=== PATIENT | female | born 2000 | race Caucasian/White ===

== ENCOUNTER 2023-11-05 20:04 | Outpatient (REF) | payer OTHER, SELFPAY | END 2023-11-05 20:05 | disposition home or self-care (01) | LOC: LAB 20:04 | PROVIDERS: Visit Provider Obstetrics & Gynecology | DX: Z01.419 Encounter for gynecological examination (general) (routine) without abnormal findings (principal) | CPT/HCPCS: 88175 ==

== ENCOUNTER 2024-05-19 19:46 | Outpatient (REF) | payer OTHER, SELFPAY ==
--- OUTSIDE RECORDS SUMMARY | 2024-05-19 20:07 | XMS_ITS | CCD ---
Author Organization [facility] Care Team Providers Care Flavor Extractor Name Role Phone SHAIKH ROLAND Attending Unavailable SHAIKH ROLAND Admitting Unavailable SHAIKH ROLAND Primary Care Unavailable SHAIKH ROLAND Consulting DR EZEQUIEL Dixon Admitting Unavailable DR EZEQUIEL GUNN Consulting Unavailable DR EZEQUIEL GUNN Attending Unavailable SHAIKH ROLAND Primary Care Unavailable Rocio Nur Unavailable EZEQUIEL GUNN Attending Unavailable Allergies Allergy Classification Reported Allergen(s) Allergy Type Date of Onset Reaction(s) Facility (1 source) Amoxicillin Drug Allergy 06-24-2019 [facility] Repository (2 sources) Amoxicillin Drug Allergy [facility] Relative[facility]ai Other Medications Current Medications Medication Drug Class(es) Dates Sig (Normalized) Sig (Original) 24 hr buPROPion hydrochloride 150 mg extended release oral tablet (3 sources) Aminoketone Start: 12-03-2023 take 1 tablet by mouth once daily in the morning Bupropion Hcl Active 150 MG PO Daily December 03, 2023 12:00am Free[employer]Si tablet in the morning Orally Once a day; Note: Source Status: Taking; Provider: Boom Chan ( ) take 1 tablet by sun th every twenty-four hours buPROPion HCl ER (XL) 150 MG 1 tablet in the morning Orally Once a day Active cephalexin 500 mg oral capsule (2 sources) Cephalosporin Antibacterial Start: 03-18-2023 take 1 capsule by mouth every twelve hours Cephalexin 500 MG 1 capsule Orally twice a day for Mar, Active Start: 02-15-2023 take 1 capsule by mo uth every twelve hours Cephalexin 500 MG 1 capsule Orally twice a day for Feb, Active ethinyl estradiol 0.02 mg / ferrous fumarate 75 mg / norethindrone 1 mg oral tablet (2 sources) Estrogen take 1 tablet by mouth every twenty-four hours Blisovi 24 Fe 1-20 MG-MCG(24) 1 tablet Orally Once a day Active fluticasone propionate 0.05 mg/actuat metered dose nasal spray (1 source) Corticosteroid Start: take 1 spray(s) nasal route once daily Fluticasone Propionate Active 1 SPRAY INTRANASAL Daily 16 14 December 03, 2023 12:00am administer into each nostril ibuprofen 200 mg oral tablet (2 sources) Nonsteroidal Anti-inflammatory Drug take 2-3 tablets by mouth once daily as needed Ibuprofen 200 MG 2-3 tablets Orally daily prn Active Norethindrone-E.Estra diol-Iron (Blisovi Fe /20 (28)) 1 mg-20 mcg (21)/75 mg (7) tablet (1 source) Start: Norethindrone-E.Es tradiol-Iron (Blisovi Fe 06/28 ()) 1 mg-20 mcg (21)/75 mg (7) tablet Active 1 TAB PO Daily December 03, 2023 12:00am sertraline 100 mg oral tablet (3 sources) Serotonin Reuptake Inhibitor Start: take 100 mg by mouth once daily Sertraline Active 100 MG PO Daily December 03, 2023 12:00am take 1 tablet by sun th every twenty-four hours Zoloft 100 MG 1 tablet Orally Once a day Active Problems Problem Classification Problem Date Documented Date Episodic/Chronic Acute and chronic tonsillitis (2 sources) Amygdalolith; Translations: [Other chronic diseases of tonsils and adenoids] 12-03-2023 Chronic Anxiety disorders (1 source) Mixed anxiety and depressive disorder; Translations: [Anxiety disorder, unspecified] 12-03-2023 Chronic Cardiac dysrhythmias (1 source) Pulse fast; Translations: [Tachycardia, unspecified] 12-03-2023 Episodic Disorders of lipid metabolism (1 source) Hyperlipidemia; Translations: [Hyperlipidemia, unspecified] 12-03-2023 Chronic Immunizations and screening for infectious disease (1 source) Encounter for screening for human papillomavirus (HPV); Translations: [ENC SCREENING HUMAN PAPILLOMAVIRUS] Onset: 10-17-2021 Episodic Other nutritional; endocrine; and metabolic disorders (4 sources) Abnormal weight gain; Translations: [ABNORMAL WEIGHT GAIN] Onset: 08-13-2021 Episodic Other screening for suspected conditions (not mental disorders or infectious disease) (4 sources) Encounter for screening for malignant neoplasm of cervix; Translations: [ENC SCREENING MALIG NEOPLASM CERV] Onset: 10-16-2021 Episodic Other upper respiratory disease (1 source) Congestion of nasal sinus; Translations: [Nasal congestion] 12-03-2023 Episodic Other upper respiratory disease (1 source) Nasal congestion; Translations: [Other disease of nasal cavity and sinuses] 12-03-2023 Episodic Other upper respiratory infections (2 sources) Maxillary sinusitis; Translations: [Chronic maxillary sinusitis] Chronic Other upper respiratory infections (4 sources) Acute pharyngitis, unspecified; Translations: [Streptococcal pharyngitis] Episodic Thyroid disorders (1 source) Hypothyroidism; Translations: [Hypothyroidism, unspecified] 12-03-2023 Chronic Results Test Name Value Interpretation Reference Range Facil ity Quick Strepon 03-18-2023 S. pyogenes Org specific cx Ql (Throat) Positive [facility] Other Quick Strep [facility] Other Quick Strepon 02-15-2023 S. pyogenes Org specific cx Ql (Throat) Positive [facility] Other Quick Strep [facility] Other PAP ACOG PANEL 2: 21 to 29on 10-22-2021 . . Normal [facility] Comment on above: Performed By: #### [id number] #### [facility] [address] [address] [address] Mikhail Gaines Age Gdln ACOG Testing 19- Normal [facility] Comment on above: Performed By: #### [id number] #### [facility] [id number] Mikhail Gaines DIAGNOSIS: Comment [facility] Comment on above: Result Comment: NEGATIVE FOR INTRAEPITHE LIAL LESION OR MALIGNANCY. Performed By: #### [id number] #### [facility] [address] [place] [address] Dr. Mikhail Gaines Methodology: Comment Normal [facility] Comment on above: Result Comment: This liquid based ThinPr ep(R) pap test was screened with the use of an image guided system. Performed By: #### [id number] #### [facility] [address] [place] [address] Dr. Mikhail Gaines Note: Comment Normal [facility] Comment on above: Result Comment: The Pap smear is a scree darcie test designed to aid in the detection of premalignant and malignant conditions of the uterine cervix. It is not a diagnostic procedure and should not be used as the sole means of detecting cervical cancer. Both false-positive and false-negative reports do occur. . Performed By: #### [id number] #### [facility] [address] [place] [address] Dr. Mikhail Gaines Performed by: Comment Normal [facility] Comment on above: Result Comment: January Keys Cytotechn ologist (ASCP) Performed By: #### [id number] #### [facility] [address] [place] [address] Dr. Mikhail Gaines Reflex Criteria: Comment [facility] Comment on above: Result Comment: The HPV DNA reflex crite marilou were not met with this specimen result therefore, no HPV testing was performed. . Performed By: #### [id number] #### [facility] [address] [place] [address] Dr. Mikhail Gaines Specimen adequacy: Comment Normal [facility] Comment on above: Result Comment: Satisfactory for evaluat ion. No endocervical component is identified. Performed By: #### [id number] #### [facility] [address] [place] [address] Dr. Mikhail Gaines TSHon 08-13-2021 TSH 1.745 uIU/mL Normal 0.470-4.680 [facility] Comment on above: Performed By: #### TSH #### [facility] [address] [place] [address] Dr. Mikhail Gaines TSH RANGE SEE BELOW Normal [facility] Comment on above: Result Comment: <0.34 UIU/ml HYPERTHYROI D 0.34-5.60 UIU/ml EUTHYROID >5.60 UIU/ml HYPOTHYROID Performed By: #### T #### [facility] [address] [place] [address] Dr. Mikhail Gaines Vital Signs Date Time Vital Sign Value Performing Clinician Facility 12-03-2023 10:49-0400 Body height 172.72 cm [facility] 12-03-2023 10:49-0400 Body mass index (BMI) [Ratio] 38 kg/m2 [facility] 12-03-2023 10:49-0400 Body temperature 98.3 [degF] [facility] 12-03-2023 10:49-0400 Body weight 113.39 kg [facility] 12-03-2023 10:49-0400 Diastolic blood pressure 73 mm[Hg] [facility] 12-03-2023 10:49-0400 Heart rate 102 /min [facility] 12-03-2023 10:49-0400 Respiratory rate 18 /min [facility] 12-03-2023 10:49-0400 SaO2% (BldA) [Mass fraction] 97 % [facility] 12-03-2023 10:49-0400 Systolic blood pressure 127 mm[Hg] [facility] 03-18-2023 13:15-0400 Body height 170.18 cm Rocio Nur Other [facility] Other 03-18-2023 13:15-0400 Body mass index (BMI) [Ratio] 39.68 kg/m2 Rocio Nur Other [facility] Other 03-18-2023 13:15-0400 Body temperature 99.7 [degF] Rocio Nur Other [facility] Other 03-18-2023 13:15-0400 Body weight 114.94 kg Rocio Nur Other [facility] Other 03-18-2023 13:15-0400 Respiratory rate 18 /min Rocio Nur Other [facility] Other 03-18-2023 13:15-0400 SaO2% (BldA) [Mass fraction] 97 % Rocio Nur Other [facility] Other 02-15-2023 11:20-0400 Body height 170.18 cm Rocio Nur Other [facility] Other 02-15-2023 11:20-0400 Body mass index (BMI) [Ratio] 39.97 kg/m2 Rocio Nur Other [facility] Other 02-15-2023 11:20-0400 Body temperature 98.1 [degF] Rocio Nur Other [facility] Other 02-15-2023 11:20-0400 Body weight 115.76 kg Rocio Nur Other [facility] Other 02-15-2023 11:20-0400 Respiratory rate 16 /min Rocio Nur Other [facility] Other 02-15-2023 11:20-0400 SaO2% (BldA) [Mass fraction] 99 % Rocio Nur Other [facility] Other Encounters Encounter Date Encounter Type Care Provider Facility Start: 12-03-2023 End: 12-03-2023 ambulatory [facility] Work Phone: Start: 12-03-2023 End: 12-03-2023 Patient encounter procedure [facility] Work Phone: Start: 11-05-2023 End: 11-05-2023 ambulatory EZEQUIEL GUNN Not Available Start: 03-18-2023 End: 03-18-2023 ambulatory Rocio Nur Other [facility] Other Start: 03-18-2023 Office outpatient vi sit 25 minutes Rocio Nur [facility] Start: 02-15-2023 End: 02-15-2023 ambulatory Rocio Nur Other [facility] Other Start: 02-15-2023 Office outpatient ne w 30 minutes Rocio Nur [facility] Start: 10-16-2021 End: 10-16-[address] EZEQUIEL GUNN Facility:[facility] Start: 08-13-2021 End: 08-14-2021 ambulatory SHAIKH ASUNCION Facility:[facility] Payers Date Payer Category Payer Unknown [id number] 1998 Unknown [id number] 1998 Unknown [id number] [id number] 1998 Unknown [id number] 1959 Unknown [id number] Social History Date Type Detail Facility Unknown if ever smoked [facility] Other Sex Assigned At Sex Assigned At Bir th [facility] Other Start: 12-03-2023 Tobacco smoking status NHIS Never smoked tobacco (finding) [facility] Start: 2000 Sex Assigned At Female F [facility] Evaluation note 03-18-2023 Note Date & Type Note Facility 03-18-2023 Evaluation note Encounter Date Diagnosis Assessment Notes Mar, Sore throat (ICD-10 - J02.9) Mar, Strep pharyngitis (ICD-10 - J02.0) Advised patient that strep test was positive. Reviewed allergies and recent antibiotic use. Instructed patient to take antibiotic as prescribed, with food and plenty of water, complete entire course even if feeling better. Advised patient that they are contagious for 24 hours after starting antibiotic. Discussed infection control and good hand hygiene. New tooth brush in 2-3 days after starting antibiotic. Supportive care as directed. Push fluids and rest, Tylenol or Motrin as needed for fever or discomfort, warm salt water gargles, throat lozenges as needed. Patients symptoms should improve in the next 48 hours, eval by PCP or UC if symptoms have not improved with treatment. Discussed in depth warning symptoms that require immediate eval. Patient verbalizes understanding and is agreeable to treatment plan. [facility] Other Evaluation note 02-15-2023 Note Date & Type Note Facility 02-15-2023 Evaluation note Encounter Date Diagnosis Assessment Notes Feb, Sore throat (ICD-10 - J02.9) Feb, Strep pharyngitis (ICD-10 - J02.0) Advised patient that strep test was positive. Instructed to take antibiotic as directed, complete entire course even if feeling better. Allergies and recent antibiotics reviewed. Advised that patient is contagious for 24 hours after starting antibiotic, work/school note provided. Discussed good hand hygiene and infection control. New tooth brush and wash linens after 2-3 days of being on antibiotic to prevent reinfection. Discussed supportive care, push fluids and rest, eat soft foods and liquids that are easy to swallow, use throat lozenges and warm salt water gargles, Tylenol/Motrin as needed for fever or discomfort. Symptoms should improve in the next 48 hours, eval by PCP or UC if symptoms have not improved with treatment. Immediate eval if difficultly managing oral secretions, drooling, unilateral neck swelling, hot potato voice, persistent fever, neck pain/stiffness, severe headache, lethargy or any new or concerning symptoms arise. Patient verbalizes understanding and is agreeable to treatment plan [facility] Other Evaluation note Note Date & Type Note Facility Evaluation note Diagnosis Onset Date Sinus congestion acute Tonsil stone [facility] Work Phone: History general Narrative - Reported Note Date & Type Note Facility History general Narrative - Reported Type Medical History Elevated pulse rate Medical History HYperlipidemia Medical History Anxiety and Depression Medical History Hypothyroidism [facility] Other Summary Purpose Family History Relationship Condition Age at Onset Recorded Date/T [place] father Hyperlipidemia Unknown Family history of mental disorder Unknown Hypertension Unknown mother Family history of mental disorder Unknown Advance Directives Advance Directive Response Recorded Date/ Time Advance Directives No December 02 10:36am Chief Complaint and Reason for Visit Chief Complaint cough,congestion, co vid neg test Reason for Visit Sinus congestion Tonsil stone Additional Source Comments INFORMATION SOURCE (unrecogn ized section and content) DATE CREATED AUTHOR 10/25/2021 [facility] DATE CREATED AUTHOR AUTHOR'S ORGANIZ ATION 11/06/2023 [facility] EPIC REASON FOR VISIT (unrecogniz ed section and content) possible strepSORE THROAT, C ONGESTION, EARS Care Teams (unrecognized sec tion and content) Team Status: Active Member Role Status Dates PHYSICIAN NO FAMILY Primary Care Provider Active Team Status: Inactive Member Role Status Dates Diane Lawrence APRN Attending Provider Active S tart: December 03, 2023 End: December 03, 2023 PHYSICIAN NO FAMILY Primary Care Provider Active Start: December 03, 2023 End: December 03, 2023 Goals (unrecognized section and content) Goals may be documented in a n alternate section FOR RECORDS PERTAINING TO PATIENTS WHO ARE OR HAVE BEEN ENROLLED IN A CHEMICAL DEPENDENCY/SUBSTANCEABUSE PROGRAM, SOME INFORMATION MAY BE OMITTED. This clinical summary was aggregated from multiple sources. Caution should be exercised in using it in the provision of clinical care. This summary normalizes information from multiple sources, and as a consequence, information in this document may materially change the coding, format and clinical context of patient data. In addition, data may be omitted in some cases. CLINICAL DECISIONS SHOULD BE BASED ON THE PRIMARY CLINICAL RECORDS. [employer] provides no warranty or guarantee of the accuracy or completeness of information in this document.
== END 2024-05-19 19:47 | disposition home or self-care (01) ==
LOC: LAB 19:46
PROVIDERS: Visit Provider Obstetrics & Gynecology
DX: R87.612 Low grade squamous intraepithelial lesion on cytologic smear of cervix (LGSIL) (principal); Z12.4 Encounter for screening for malignant neoplasm of cervix
CPT/HCPCS: 88175

== ENCOUNTER 2025-05-25 20:39 | Outpatient (REF) | payer OTHER, SELFPAY ==
--- OUTSIDE RECORDS SUMMARY | 2025-05-25 15:00 | XMS_ITS | Encounter Summary ---
Author Organization [facility] Address [address] [place] [address] Care Team Providers Care Blower And Compressor Assembler Name Role Phone Shaikh MARYBETH Jiménez Primary Care Provider [phone] Reason for Visit * ReasonCommentsWell Women Visit Encounter Details DateTypeDepartmentCare Team (Latest Contact Info)Enqglwffuep64/17/2025 3:00 PM ESTOffice Visit [facility] [address] [place] [id number] Sonny Bello DO [address] [place] [address] Well woman exam with routine gynecological exam Social History Tobacco UseTypesPacks/DayYears UsedDateSmoking Tobacco: Never Assessed CommentsUnknownSex and Gender InformationValueDate RecordedSex Assigned at Vukepx0610/29/2023 12:45 PM EDTLegal RogKmhpyr64/15/2023 7:26 PM EDTGender TtlixlxyAkyfgd28/22/2024 12:45 PM EDTSexual AugyazzgkmaNozdzhmh55/22/2024 12:45 PM EDTdocumented as of this encounter Last Filed Vital Signs Vital SignReadingTime TakenCommentsBlood Qajshutj414/7005/25/2025 3:25 PM EST Pulse--Temperature--Respiratory Rate--Oxygen Saturation--Inhaled Oxygen Concentration--Pczweh608 kg (253 lb 12.8 oz)05/25/2025 3:25 PM ESTHeight--Body Mass Index38.59010/22/2022 12:00 PM EDTdocumented in this encounter Progress Notes * Dorina Davidson, VACUUM CLEANER OPERATOR - 05/25/2025 3:00 PM EST Reason for Appointment: Patient ID: Cindy Carcamo is a 24 y.o. female who presents for Well Women Visit Patient presents today for Annual Exam. MEDICATIONS Current Outpatient Medications Medication Instructions buPROPion XL (WELLBUTRIN XL) 150 mg, Oral, Daily norethindrone-ethinyl estradiol (Blisovi FE 06/28) 1-20 MG-MCG tablet 1 tablet, Oral, Daily sertraline (ZOLOFT) 100 mg, Oral, Daily ALLERGIES Allergies Allergen Reactions Amoxicillin Hives and Unknown Other Reaction(s): rash Other Reaction(s): hives PROBLEMS Active Ambulatory Problems Diagnosis Date Noted No Active Ambulatory Problems Resolved Ambulatory Problems Diagnosis Date Noted No Resolved Ambulatory Problems No Additional Past Medical History HISTORY PAST MEDICAL HISTORY SOCIAL HISTORY No past medical history on file. Social History Tobacco Use Smoking status: Not on file Smokeless tobacco: Not on file Substance Use Topics Alcohol use: Not on file Drug use: Not on file FAMILY HISTORY No family history on file. SURGICAL HISTORY No past surgical history on file. REVIEW OF SYSTEMS Review of Systems: Review of Systems Constitutional: Negative. HENT: Negative. Eyes: Negative. Respiratory: Negative. Cardiovascular: Negative. Gastrointestinal: Negative. Genitourinary: Negative. Musculoskeletal: Negative. Skin: Negative. Neurological: Negative. All other systems reviewed and are negative. Hematological: Negative. Endocrine: Negative. Allergic/Immunologic: Negative. OBJECTIVE Objective: Physical Exam Constitutional: Appearance: Normal appearance. She is well-developed. Genitourinary: Vulva normal. Cardiovascular: Rate and Rhythm: Normal rate and regular rhythm. Pulmonary: Effort: Pulmonary effort is normal. Breath sounds: Normal breath sounds. Abdominal: General: Bowel sounds are normal. There is no distension. Palpations: Abdomen is soft. Tenderness: There is no abdominal tenderness. There is no guarding or rebound. Musculoskeletal: General: No swelling. Normal range of motion. Right lower leg: No edema. Left lower leg: No edema. Neurological: Mental Status: She is alert and oriented to person, place, and time. Skin: General: Skin is warm and dry. Psychiatric: Mood and Affect: Mood normal. Behavior: Behavior normal. Vitals and nursing note reviewed. Exam conducted with a environmental protection economist present. Vitals: Estimated body mass index is 38.59 kg/m?? as calculated from the following: Height as of 10/22/22: 5' 8 . Weight as of this encounter: 253 lb 12.8 oz. BP: 116/70 No LMP recorded. ASSESSMENT & PLAN ICD-10-CM 1. Well woman exam with routine gynecological exam Z01.419 Pap Smear No orders of the defined types were placed in this encounter. Annual Wellness Exam: Patient presents today for routine annual exam. Patient states she has no current complaints. Patients vitals were reviewed and within normal limits. Growth and development is noted to be appropriate for age. Menstrual history is noted to be regular with no concerns reported. No mental health concerns was expressed. Pap Smear: Speculum was inserted into the vagina and pap was obtained without difficulty. No HPV testing was performed per age guideline. Patient was advised that pap results could take anywhere from 7 to 10 days to receive and our office will reach out to the patient with those once we have them. Patient canalso view results via [place]. I reinforced importance of condom use for STI prevention. Patient declined cultures to be performed with today's visit. Breast Exam: Upon examination, clinical breast exam was noted to be normal. Patient was counseled on breast self-awareness, including the importance of knowing what is normal for her own breasts and promptly reporting any changes such as new lumps, skin dimpling, nipple discharge, or pain. Screening mammogram recommended annually beginning at age 40 or earlier if risk factors are present. Discussed signs and symptoms of breast cancer and when to seek medical attention. Answered all patient questions. Contraceptive Counseling (if applicable): Patient is currently using oral contraception as a form of contraceptive. Follow Up: Patient is to return to our office in one year for annual exam unless needed otherwise. Documented by Dorina Davidson LPN on behalf of: Sonny Bello DO documented in this encounter Plan of Treatment DateTypeDepartmentCare Team (Latest Contact Info)Lkacadtovgz29/06/2027 3:00 PM ESTProcedure Visit [facility] [address] [place] [address] [place] [address] Sonny Bello, DO [address] [place] [address] NameTypePriorityAssociated DiagnosesOrder SchedulePap SmearPathology and CytologyRoutine Well woman exam with routine gynecological exam Ordered: 05/25/2025documented as of this encounter Goals GoalPatient Goal TypeAssociated ProblemsRecent ProgressPatient-Stated?Author Help patient manage antidepressant medication Care PlanPatient on antidepressant monitoring planChay, Lou Baseline PHQ-9 Care PlanBaseline PHQ-9NoNromel, Angeladocumented as of this encounter Visit Diagnoses Diagnosis Well woman exam with routine gynecological exam Routine gynecological examination documented in this encounter Additional Health Concerns Active ProblemsNoted DateDiagnosed DatePatient on antidepressant monitoring plan 5Baseline PHQ-9011/17/2024documented as of this encounter Care Teams Team MemberRelationshipSpecialtyStart DateEnd Date Shaikh Jiménez MD [address] [place] [address] PCP - GeneralInternal Medicine11/05/23documented as of this encounter
--- OUTSIDE RECORDS SUMMARY | 2025-05-25 20:47 | XMS_ITS | Clinical Summary ---
Author Organization [facility] Address [address] [place] [address] Care Team Providers Care Software Configuration Specialist Name Role Phone Shaikh MARYBETH Jiménez Primary Care Provider [phone] Allergies Active AllergyReactionsCriticalityNoted DateCommentsAmoxicillinHives,Unknown 10/30/2023 Other Reaction(s): rash Other Reaction(s): hives Medications MedicationSigDispense QuantityRefillsLast FilledStart DateEnd DateStatus buPROPion XL (Wellbutrin XL) 150 MG 24 hr tablet Take 150 mg by mouth DailyActive sertraline (Zoloft) 100 MG tablet Indications:Depression with anxietyTake 1 tablet (100 mg) by mouth Daily 90 tablet 4Active norethindrone-ethinyl estradiol (Blisovi FE 06/28) 1-20 MG-MCG tablet Indications:Encounter for surveillance of contraceptive pillsTake 1 tablet by mouth Daily 28 tablet 1205Active Encounters DateTypeDepartmentCare BkraDsmrfcuoqup13/17/2025 3:00 PM ESTOffice Visit [facility] [address] [place] [address] Sonny Bello DO Well woman exam with routine gynecological exam05/25/2025amboo flowsheet [facility] [address] [place] [address] Sonny Bello DO from Last 3 Months Social History Tobacco UseTypesPacks/DayYears UsedDateSmoking Tobacco: Never Assessed CommentsUnknownSex and Gender InformationValueDate RecordedSex Assigned at Dgkmaf4710/29/2023 12:45 PM EDTLegal NrdKcdnxk44/15/2023 7:26 PM EDTGender EaiwuiseTxtoho62/22/2024 12:45 PM EDTSexual SfvylhyqcyyEzjkfklu23/22/2024 12:45 PM EDT Last Filed Vital Signs Vital SignReadingTime TakenCommentsBlood Npzbzpwd299/7005/25/2025 3:25 PM EST Pulse--Temperature--Respiratory Rate--Oxygen Saturation--Inhaled Oxygen Concentration--Igybnu819 kg (253 lb 12.8 oz)05/25/2025 3:25 PM UYWZdgymk042.7 cm (5' 8 )10/22/2022 12:00 PM EDTBody Mass Index38.59010/22/2022 12:00 PM EDT Plan of Treatment DateTypeDepartmentCare Team (Latest Contact Info)Tyhfhzoajny09/06/2027 3:00 PM ESTProcedure Visit [facility] [address] [place] [phone] Sonny Bello DO [address] [facility] [place], [place] [id number] Health MaintenanceDue DateLast DoneCommentsCOVID-19 Vaccine ( season) , 02/16/2021, 09/07/2020Influenza Vaccine (#1)2025 Pneumococcal Vaccine: Pediatrics (0 to 5 Years) and At-Risk Patients (6 to 64 Years)Aged OutNo longer eligible based on patient's age to complete this topic Goals GoalPatient Goal TypeAssociated ProblemsRecent ProgressPatient-Stated?Author Help patient manage antidepressant medication Care PlanPatient on antidepressant monitoring Lou Gomez Baseline PHQ-9 Care PlanBaseline PHQ-9Lou Cartwright Additional Health Concerns Active ProblemsNoted DateDiagnosed DatePatient on antidepressant monitoring plan 11/17/2024aseline PHQ-9011/17/2024 Insurance Care Teams Team MemberRelationshipSpecialtyStart DateEnd Date Shaikh Jiménez MD [address] [place] [phone] PCP - GeneralInternal Medicine11/05/23
--- OUTSIDE RECORDS SUMMARY | 2025-05-25 20:47 | XMS_ITS | Encounter Summary ---
Author Organization [facility] Address [address] [facility] [place] [address] Care Team Providers Care Pelt Grader Name Role Phone Shaikh MARYBETH Jiménez Primary Care Provider [phone] Encounter Details DateTypeDepartmentCare Team (Latest Contact Info)Uuhycrykasq88/17/2025amboo flowsheet [facility] [address] [place] [address] [place] [address] Sonny Bello, DO [address] [facility] [address] [place], [place] [address] Social History Tobacco UseTypesPacks/DayYears UsedDateSmoking Tobacco: Never Assessed CommentsUnknownSex and Gender InformationValueDate RecordedSex Assigned at Ptoeak4510/29/2023 12:45 PM EDTLegal IcmRrphoy08/15/2023 7:26 PM EDTGender YfizzjljYetuoy09/22/2024 12:45 PM EDTSexual SlpthrpofwxCzrlloqm56/22/2024 12:45 PM EDTdocumented as of this encounter Plan of Treatment DateTypeDepartmentCare Team (Latest Contact Info)Bvlabmcpsnl78/06/2027 3:00 PM ESTProcedure Visit [facility] [address] [place] [address] Sonny Bello, DO [address] [place], [facility] documented as of this encounter Goals GoalPatient Goal TypeAssociated ProblemsRecent ProgressPatient-Stated?Author Help patient manage antidepressant medication Care PlanPatient on antidepressant monitoring planLou Cartwright Baseline PHQ-9 Care PlanBaseline PHQ-9Sanju Cartwrightadocumented as of this encounter Visit Diagnoses Not on filedocumented in this encounter Additional Health Concerns Active ProblemsNoted DateDiagnosed DatePatient on antidepressant monitoring plan 5Baseline PHQ-9011/17/2024documented as of this encounter Care Teams Team MemberRelationshipSpecialtyStart DateEnd Date Shaikh Jiménez MD [address] [place] [address] PCP - GeneralInternal Medicine11/05/23documented as of this encounter
--- OUTSIDE RECORDS SUMMARY | 2025-05-25 20:47 | XMS_ITS | Patient Health Record ---
Author Organization [facility] Address [address] [place], [place] [id number] Care Team Providers Care Senior Telecommunications Technician Name Role Phone Jacklyn Lee Primary Care Provider Allergies Allergen (clinical drug ingredient) Drug/Non Drug Allergy documented on EMR Reaction Allergy Type Onset Date Status amoxicillin Amoxicillin hives Drug Allergy Active Results Component Value Reference Range Flag Notes LIPID PANEL WITH REFLEX TO D IRECT LDL Reviewed date:01/06/2025 08:15:11 AM Interpretation: Performing Lab: Notes/Report: CHOLESTEROL 247 100-199 mg/dL H QHBUXYPXFDMED32637-475 mg/dLHVLDL-CHOL, XQBDEDTHKT28<30 mg/dLHHDL-CHOL54>=50 mg/dLLDL-CHOL, XFEETHBJEK258<130 mg/dLH ADULT LDL CHOLESTEROL CLASSIFICATION <100mg/dL Optimal 100-129mg/dL Near/Above Optimal 130-159mg/dL Borderline High >160mg/dL High Risk Desirable range <100 mg/dL for patients with CHD or diabetes and <70 mg/dL for diabetic patients with known heart disease. Direct LDL is recommended for patients with triglycerides >400. LDL/HDL2.9<4.1 LDL/HDL RATIO MALE FEMALE below average risk <2.3 <2.3 average risk <5.0 <4.1 moderate risk <7.1 <5.6 high risk >7.1 >5.6 CHOL/HDL4.62.0-4.5HTSH + FREE T4 PROFILE Reviewed date:01/06/2025 08:01:20 AM Interpretation: Performing Lab: Notes/Report:TSH2.050.270-4.200 uIU/mL The [place] [employer] (MICKI) recommends the following reference ranges for TSH levels during : First trimester: 0.1 to 2.5 mIU/L Second trimester: 0.2 to 3.0 mIU/L Third trimester: 0.3 to 3.0 mIU/L FREE T41.040.80-1.90 ng/dLCOMPREHENSIVE METABOLIC PANEL WITH GFR Reviewed date:01/06/2025 08:02:21 AM Interpretation: Performing Lab: Notes/Report:ZBYSRLP1724-651 mg/nAQVA777-18 mg/dLCALCIUM9.28.6-10.5 mg/dL CREATININE, BLOOD0.790.51-1.15 mg/dLeGFR (2020 CKD-EPI)106>59 mL/min/1.73m2 XRIXWD792286-199 mmol/LPOTASSIUM4.33.5-5.4 mmol/GIOKVBLCO71762-821 mmol/JKE576 18-32 mmol/LANION NYI543-91 mmol/LT. BILIRUBIN0.3<1.3 mg/dLALK SVYT0673-200 U/L HKG-BSCW454-49 U/FZRN-GISK006-69 U/LT. PROTEIN6.86.0-8.3 g/dLALBUMIN4.03.5-5.2 g/dLCBC W/AUTO DIFF Reviewed date:01/06/2025 08:01:13 AM Interpretation: Performing Lab: Notes/Report:WBC8.73.6-11.0 THDS/CMMRBC5.183.80-5.20 MILL/ILXCJK26.111.9-16.0 G/DLHCT44.035-47 %MWT8962-839 fLMCH27.226.0-33.0 rcBXCN25.032.0-35.0 g/dlRDW12.4 11.2-14.8 %NLBBCAJQ058176-136 THOUS/TZKCUOKDDNIJPC34.745-75 %WGTKDAQVLIH64.020- 45 %MONOCYTES7.70-13 %EOSINOPHILS1.70-5 %BASOPHILS0.60-2 %IMMATURE GRAN1.30-2 % ABS NEUTROPHILS4.961.9-8.0 K/uLABS LYMPHOCYTES2.800.9-5.2 K/uLABS MONOCYTES0.67 0.1-1.0 K/uLABS EOSINOPHILS0.150.0-0.80 K/uLABS BASOPHILS0.050.0-0.2 K/uLABS IMMATURE GRAN0.110.00-0.06 K/uLHHEMOGLOBIN A1C Reviewed date:01/06/2025 08:02:10 AM Interpretation: Performing Lab: Notes/Report:HEMOGLOBIN A1C5.1<5.7 % Prediabetes: 5.7% to 6.4% Diabetes: >6.4% Glycemic control for adults with diabetes: <7.0% Use with caution in patients with abnormal hemoglobin variants as the half-life of red blood cells and in vivo glycation rates are affected. AVERAGE WHOLE BLOOD JALFRBX387<126 mg/dl UNLESS OTHERWISE INDICATED, ALL TESTING PERFORMED AT: [facility] [address] [place] [address] FUR CLEANER: LAVERN HERNANDEZ M.D. CLIA NUMBER [id number] CAP ACCREDITATION AUID [id number] UDS PAP Screening Reviewed date:01/04/2025 03:01:13 PM Interpretation: Performing Lab: Notes/Report: UDS HPV Screening Reviewed date:01/04/2025 03:02:23 PM Interpretation: Performing Lab: Notes/Report: Reason For Referral No Information Medications Medication SIG (Take, Route, Frequency, Duration) Notes Start Date End Date Status Sertraline HCl 100 MG Tablet 1 tablet Orally Onc e a day; Duration: 90 days ActiveNorethindrone Acet-Ethinyl Est 1-20 MG-MCG Tablet1 tablet Orally Once a dayActive Social History Tobacco Use: Social History Observation Description Date Details (start date - stop date) Never Smoker NA - NA Sex Assigned At : Social History Observation Description Sex Assigned At Female Social History Social DeterminantsSocial InfoQuestionAnswerNotesPRAPAREDate Completed/Updated: 01/04/2025patient entered dataWhat is your current housing situation?I have housingpatient entered dataAre you worried about losing your housing?No patient entered dataWhat is the highest level of school that you have finished?More than high schoolpatient entered dataWhat 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 (For example: talkingto friends on the phone, visiting friends or family, going to shinto or club meetings)More than 5 times a weekpatient entered dataHow stressed are you? Stress is when someone feels tense, nervous, anxious, or can't sleep at night because their mind is troubledNot at allpatient entered dataIn the past year have you spent more than 2 nights in a row in a chcf, custodial, longterm center, orjuvenile correctional facility?Nopatient entered dataAre you a refugee?No patient entered dataWhat country are you from?[place] Statespatient entered dataDo you feel physically and emotionally safe where you currently live?Yes patient entered dataIn the past year, have you been afraid of your partner or ex-partner?Nopatient entered dataPRAPARE Score:3Sexual History:Social Info QuestionAnswerNotesFamily PlanningAre you or your partner planning on becoming in the next year if not already ?No? What type of contraception are you using? controlPCMH and UDS DemographicsSocial InfoQuestionAnswer NotesPrimary Care Medical Home QuestionsDo you have any barriers to learning? Nonepatient entered dataDrugs/Alcohol/Caffeine:Social InfoQuestionAnswerNotes CAGE-AID Questionnaire (2018 Edition)Have you ever felt that you ought to cut down on your drinking or drug use?Nopatient entered dataHave people annoyed you by criticizing your drinking or drug use?NoHave you ever felt bad or guilty about your drinking or drug use?Nopatient entered dataHave you ever had a drink or used drugs first thing in the morning to steady your nerves or to get r id of a hangover?Nopatient entered dataCAGE-AID Movjx6EnxgandbwzlzusXlzpkpti Tobacco Use:Social InfoQuestionAnswerNotesTobacco Use/SmokingTobacco use: nonsmokerpatient entered data Problems Problem Type SNOMED Code ICD Code Onset Dates Problem Status W/U Status Risk Notes Problem Mixed hyperlipidemia (393461200) Mixed hy perlipidemia (E78.2) ActiveconfirmedProblemObese class II (973947935351127)BMI 38.0-38.9,adult (Z68.38)ActiveconfirmedProblemDiabetes mellitus screening (244736089)Diabetes mellitus screening (Z13.1)ActiveconfirmedProblemMixed anxiety and depressive disorder (175014028)Mixed anxiety and depressive disorder (F41.8)Activeconfirmed ProblemGeneralized anxiety disorder (44826725)Anxiety, generalized (F41.1)Active confirmedProblemLipid screening (496998498)Lipid screening (Z13.220)Active confirmedProblemHuman immunodeficiency virus screening (193442075)Screening for HIV (human immunodeficiency virus) (Z11.4)Activeconfirmed Vital Signs Heart Rate 83 /min 01/04/2025 Vilma Mart 01/04/2025 02:40:24 PM EDT > Temperature 97.87 degrees Fahrenheit 01/04/2025 Vilma Machuca 01/04/2025 02:40:24 PM EDT > Respiratory Rate 16 /min 01/04/2025 Tawnya Mart 01/04/2025 02:40:24 PM EDT > Height-cm 172.72 cm 01/04/2025 Vilma Mart 01/04/2025 02:40:24 PM EDT > Oximetry 98 % 01/04/2025 Vilma Mart 01/04/2025 02:40:24 PM EDT > Blood pressure diastolic 67 mm Hg 01/04/2025 Vilma Machuca 01/04/2025 02:40:24 PM EDT > Weight-kg 113.85 kg 01/04/2025 Vilma Mart 01/04/2025 02:40:24 PM EDT > Height 68 in 01/04/2025 Vilma Mart 01/04/2025 02:40:24 PM EDT > Blood pressure systolic 119 mm Hg 01/04/2025 Vilma Mcconnell 01/04/2025 02:40:24 PM EDT > Weight 251.0 lbs 01/04/2025 Vilma Mart 01/04/2025 02:40:24 PM EDT > BMI 38.16 kg/m2 01/04/2025 Vilma Mart 01/04/2025 02:40:24 PM EDT > Encounters Encounter Location Date Provider Diagnosis [address] [id number] 01/04/2025 Jacklynaleks Lee Well woman exam wi thout gynecological exam Z00.00 ; Mixed anxiety and depressive disorder F41.8 ; Diabetes mellitus screening Z13.1 ; BMI 38.0-38.9,adult Z68.38 ; Lipid screening Z13.220 ; Dietary counseling Z71.3 and Exercise counseling Z71.[address] [address] 01/06/2025 Jacklyn Lee Mixed hyperlipidemia E78.2 Assessments Encounter Date Diagnosis (ICD Code) Assessment Notes Treatment Notes Treatment Clinical Notes Section Notes 01/04/2025 Mixed anxiety and depressive dis order (ICD-10 - F41.8) Continue 100mg of Sertraline. Depression stable. Will continue current medications. Advised pt if they are have suicidal or homicidal to call 911 or go to the ER. F/up with new/worsening symptoms. 01/04/2025Well woman exam without gynecological exam (ICD-10 - Z00.00)No concerns on exam. Will obtain blood work and treat accordingly. F/u 1 year & PRN 01/06/2025Mixed hyperlipidemia (ICD-10 - E78.2)01/04/2025Diabetes mellitus screening (ICD-10 - Z13.1)Blood work ordered.01/04/2025MI 38.0-38.9,adult (ICD- 10 - Z68.38)01/04/2025Lipid screening (ICD-10 - Z13.220)Blood work ordered 01/04/2025Dietary counseling (ICD-10 - Z71.3)01/04/2025Exercise counseling (ICD- 10 - Z71.82)The patient was encouraged to increase exercise weekly to at least 3-4 times per week for 30-45 minutes for each session. Exercise may include but is not limited to walking, jogging, running, resistance training, water aerobics and strength training. Benefits of increasing exercise regimens may include healthier lifestyle, stronger bone health, diminished aches and pain, and better metabolism. Plan Of Treatment No Information Insurance Providers Payer Name Payer Address Payer Phone Subscriber Number Group Number Insured Name Patient Relationship to Insured Coverage Start Date Coverage End Date [facility] [address] [address] [place] [address] [phone] [id number] Cindy Carcamo Self - patient is the insured Medicaid CFC after [facility] [address] [place], [place] [id number], Brandi Self - patient is the [id number] 2024 Medical (General) History Medical History History ICD Code anxiety and depression
== END 2025-05-25 20:40 | disposition home or self-care (01) ==
LOC: LAB 20:39
PROVIDERS: Visit Provider Obstetrics & Gynecology
DX: Z01.419 Encounter for gynecological examination (general) (routine) without abnormal findings (principal)
CPT/HCPCS: 88175